=== PATIENT | female | born 1990 | race American Indian/Alaskan Native ===

== ENCOUNTER 2019-07-08 15:52 | Inpatient (IN) | payer MEDICAID ==
[2019-07-08] MEDS ORDERED: LACTATED RINGERS 1,000 ML ONE (17:17)
[2019-07-08] MEDS ORDERED: BRETHINE IVP PRN (17:23)
[2019-07-08] MEDS ORDERED: XYLOCAINE 2% INFILTRATI ONE (17:23)
[2019-07-08] MEDS ORDERED: SUBLIMAZE IV PRN (17:23)
[2019-07-08] MEDS ORDERED: MINERAL OIL PO PRN (17:23)
[2019-07-08] MEDS ORDERED: NARCAN 0.4 MG/1 ML IV PRN (17:23)
[2019-07-08] MEDS ORDERED: ZOFRAN IV PRN ×2 (17:23→20:31)
--- NOTE | 2019-07-08 17:39 | History and Physical Report ---
History of Present Illness Date of examination: 07/08/19 Date of admission: 07/08/19 16:59 Chief complaint: Intense labor pains History of present illness: 29yo AA Fe , S[place] 07/13/19, 39 weeks 3 weeks, presents in spontaneous labor. Pt transferd her care to [facility] at 37 weeks. Limited records available, reviewed, and scanned into chart. Past History Past Medical History: no pertinent history Past Surgical History: no surgical history EPIDEMIOLOGY INTERN History: denies: abnormal PAP smear, chlamydia, gonorrhea, hepatitis B, hepatitis C, herpes, HIV, syphilis, trichomonas Family/Genetic History: diabetes, hypertension Social history: no significant social history, , lives with family, full code. denies: smoking, IV drug use - Obstetrical History Expected Date of Delivery: 07/13/19 Actual Gestation: 39 Week(s) 2 Day(s) : 4 Para: 2 Hx # Term Pregnancies: 2 Number of Pregnancies: 0 Spontaneous Abortions: 1 Induced : 0 Number of Living Children: 2 Medications and Allergies Allergies Allergy/AdvReac Type Severity Reaction Status Date / Time diphenhydramine HCl Allergy Severe Swelling Verified 07/08/19 16:01 [From [facility]] Home Medications Medication Instructions Recorded Confirmed Last Taken Type Azithromycin [Zithromax Z-NELY] 250 mg PO DAILY #6 tablet 11/04/14 Unknown Rx HYDROcodone/APAP 5-325 [[place] 1 each PO Q6HR PRN #12 tablet 11/04/14 Unknown Rx 5/325] Promethazine Dm (Nf) [Phenergan Dm 5 ml PO Q6H PRN #120 ml 11/04/14 Unknown Rx 6.25/15 mg 5 ml] Acetaminophen [Acetaminophen TAB] 500 mg PO Q6HR PRN #12 tablet 11/04/18 Unknown Rx Ondansetron [Zofran Odt] 4 mg PO Q8HR PRN #12 tab.rapdis 11/04/18 Unknown Rx Penicillin V Potassium 500 mg PO Q8H 10 Days #30 tablet 11/04/18 Unknown Rx Review of Systems Eyes: normal appearance Cardiovascular: no chest pain, no shortness of breath Respiratory: no shortness of breath Breasts: normal Gastrointestinal: no nausea, no vomiting, no diarrhea, no constipation Genitourinary: normal appearance, contractions, no vaginal bleeding, no leakage of fluid, no pelvic pain, no genital sores Integumentary: no rash, no sores, no lesions - Vital Signs Vital signs: Vital Signs Pulse BP 118 H 121/59 07/08/19 15:55 07/08/19 15:55 Temp Pulse Resp BP Pulse Ox 98.4 F 118 H 20 121/59 07/08/19 16:02 07/08/19 16:02 07/08/19 16:02 07/08/19 16:02 - Physical Exam Breasts: Positive: normal Cardiovascular: Regular rate, Normal S1, Normal S2, No murmurs Lungs: Positive: Clear to auscultation, Normal air movement Abdomen: Positive: normal appearance, soft, normal bowel sounds. Negative: distention Vulva: both: normal Vagina: Positive: normal moisture Uterus: Positive: enlarged (gravid) Anus/Rectum: Positive: normal perianal skin Extremities: Positive: normal Deep Tendon Reflex Grade: Normal +2 - Obstetrical FHR: auscultation normal, category 1, category 2, category 3 Uterine Contraction Monitor Mode: External Cervical Dilatation: 6 (Per admitting RN) Cervical Effacement Percentage: 90 station: -2 Uterine Contraction Pattern: Regular Uterine Tone Measurement Phase: Resting Uterine Contraction Intensity: Moderate Results All other labs normal. Assessment and Plan A: Term IUP Active labor Category 1 tracing GBS Negative P: Admit to L&D Routine labor orders Anticipate
[2019-07-08] MEDS ORDERED: PITOCin/NS 20 UNIT/1000ML DRIP 20 UNITS/1,000 ML BAG IV SCH (18:00)
[2019-07-08] MEDS ORDERED: LACTATED RINGERS 1,000 ML IV SCH (18:00)
[2019-07-08] MEDS ORDERED: PITOCin/NS 30 UNIT/500ML 30 UNITS/500 ML BAG IV SCH (18:00)
[2019-07-08] MEDS ORDERED: BRETHINE SUB-Q PRN (18:00)
[2019-07-08 18:28] LABS: Hematocrit 33.1 % (30.3-42.9); Hemoglobin 10.7 gm/dl (10.1-14.3); Mean Corpuscular HGB Conc 32 % (30-34); Mean Corpuscular Volume 76 fl (79-97); Platelet Count 314 K/mm3 (140-440); Red Blood Count 4.39 M/mm3 (3.65-5.03); Red Cell Distribution Width 16.8 % (13.2-15.2)
[2019-07-08] MEDS ORDERED: NARCAN 2 MG/2 ML IV PRN (19:17)
--- NOTE | 2019-07-08 19:17 | Anesthesia Consultation ---
Anesthesia Consult and Med Hx Date of service: 07/08/19 - Airway Anesthetic Teeth Evaluation: Good ROM Head & Neck: Adequate Mental/Hyoid Distance: Adequate Mallampati Class: Class II Intubation Access Assessment: Probably Good - Pulmonary Exam CTA: Yes - Cardiac Exam Cardiac Exam: RRR - Pre-Operative Health Status ASA Pre-Surgery Classification: ASA3 Proposed Anesthetic Plan: Epidural - Pulmonary Hx Asthma: No COPD: No Hx Pneumonia: No - Cardiovascular System Hx Hypertension: No - Central Nervous System Hx Seizures: No Hx Psychiatric Problems: No - Endocrine Hx Renal Disease: No Hx End Stage Renal Disease: No Hx Hypothyroidism: No Hx Hyperthyroidism: No - Hematic Hx Anemia: Yes Hx Sickle Cell Disease: No - Other Systems Hx Alcohol Use: No
[2019-07-08] MEDS ORDERED: fentaNYL-BUPIV 2 MCG/ML-0.125% 200 MCG/100 ML BAG EPIDURAL SCH (20:00)
[2019-07-08] MEDS ORDERED: BENADRYL PO PRN (20:31)
[2019-07-08] MEDS ORDERED: NORCO 5/325 PO PRN (20:31)
[2019-07-08] MEDS ORDERED: PHENERGAN PO PRN (20:31)
[2019-07-08] MEDS ORDERED: TYLENOL PO PRN (20:31)
[2019-07-08] MEDS ORDERED: TUCKS PAD TP PRN (20:31)
[2019-07-08] MEDS ORDERED: LANSINOH TP PRN (20:31)
[2019-07-08] MEDS ORDERED: MILK OF MAGNESIA PO PRN (20:31)
[2019-07-08] MEDS ORDERED: DULCOLAX PR PRN (20:31)
--- NOTE | 2019-07-08 20:41 | Procedure Note ---
OB Delivery Note - Delivery Date of Delivery: 07/08/19 (19:45) Surgeon: KIEL CHAMBERS (SHANNON) Estimated blood loss: 100cc - Vaginal Delivery presentation: vertex Delivery position: OA Intrapartum events: none Delivery induction: none Delivery monitor: external FHT, external uterine Route of delivery: (19:45) Delivery placenta: spontaneous (19:52) Delivery cord: nuchal cord (x1 loose) Episiotomy: none Delivery laceration: none Anesthesia: epidural Delivery comments: Nurse delivery of viable male . Upon entering room , vigorous infant [id number] on mothers abdomen. Cord clamped and then cut by FOB with my Guidance. Cord blood collected per protocol. Spontaneous zambrano delivery of intact placenta with 3VC at 19: 52. FF@U-2. small lochia. No tears or lacerations. EBL 100cc. and mother left in stable condition in L&D. - Infant A at 1 minute: 8 at 5 minutes: 9 Infant Gender: Male (2851 grams, 6lbs 5oz)
[2019-07-08] MEDS ORDERED: SODIUM CHLORIDE FLUSH SYRINGE 10 ML IV NR (21:00)
[2019-07-08] MEDS: IBUPROFEN PO SCH (22:09)
[2019-07-09] MEDS: IBUPROFEN PO SCH ×3 (05:49→23:58)
[2019-07-09 09:04] LABS: Hematocrit 31.3 % (30.3-42.9); Hemoglobin 9.9 gm/dl (10.1-14.3)
--- NOTE | 2019-07-09 11:00 | Progress Note ---
Assessment and Plan - Patient Problems (1) Vaginal delivery Current Visit: No Status: Acute Plan to address problem: Continue routine PP orders Anticipate d/c home tomorrow (2) Anemia Current Visit: Yes Status: Acute Qualifiers: Anemia type: other cause Other causes of anemia: acute posthemorrhagic Qualified Code(s): D62 - Acute posthemorrhagic anemia Plan to address problem: Asymptomatic Continue daily oral iron supplementation after d/c Increase iron rich foods into diet Subjective - Subjective Date of service: 07/09/19 Principal diagnosis: Interval history: See admission H & P and OB delivery summary Patient reports: appetite normal, voiding normally, pain well controlled, flatus, ambulating normally, no bowel movement [place]: doing well () Objective - Vital Signs Latest vital signs: Vital Signs Temp Pulse Resp BP BP Pulse Ox 07/09/19 07:55 97.6 F 60 18 107/47 07/09/19 05:49 20 07/09/19 00:30 98.4 F 75 18 101/64 07/08/19 23:41 20 07/08/19 22:09 18 07/08/19 22:00 68 18 128/60 98 07/08/19 21:24 78 139/71 07/08/19 21:00 78 16 139/71 07/08/19 20:45 80 16 165/62 07/08/19 20:43 80 165/62 07/08/19 20:30 92 H 16 141/63 07/08/19 20:27 92 H 141/63 07/08/19 20:15 91 H 16 158/63 07/08/19 20:12 110 H 158/63 07/08/19 20:00 97.8 F 97 H 18 141/66 141/66 07/08/19 19:50 108 H 160/80 07/08/19 19:41 106 H 189/84 07/08/19 19:35 121 H 105/71 07/08/19 19:31 75 78 L 07/08/19 19:29 91 H 97/70 07/08/19 19:28 87 132/59 07/08/19 19:26 100 H 158/70 99 07/08/19 19:23 90 145/68 07/08/19 19:21 96 H 145/74 07/08/19 19:20 90 98 07/08/19 19:19 86 145/66 07/08/19 19:18 99 H 132/73 07/08/19 19:15 92 H 151/76 97 07/08/19 19:14 107 H 163/106 07/08/19 19:11 98 H 156/70 07/08/19 19:10 97 H 96 07/08/19 18:56 117 H 98 07/08/19 18:31 99.1 F 86 16 123/56 123/56 07/08/19 17:33 89 94/58 07/08/19 16:02 98.4 F 118 H 20 121/59 07/08/19 15:55 118 H 121/59 Intake and Output 07/08/19 07/09/19 07/09/19 23:59 07:59 15:59 Intake Total 1700 540 Output Total 150 Balance 1550 540 Intake: IV 1700 Lactated Ringers 1,000 ml 700 @ 125 mls/hr IV DIRECT PAULO Rx#:[id number] PITOCin/NS 20 UNIT/1000ML 500 DRIP 20 units In 1,000 ml @ 125 mls/hr IV DIRECT PAULO Rx#:[id number] PITOCin/NS 30 UNIT/500ML 500 30 units In 500 ml @ 4 mls/hr IV TITR PAULO Rx#: [id number] fentaNYL-BUPIV 2 MCG/ML-0 0 .125% 200 mcg In 100 ml @ 12 mls/hr EPIDURAL TITR PAULO Rx#:[id number] Oral 240 Intake, Free Water 300 Output: Urine 150 Void 150 Other: Total, Intake Amount 240 Total, Output Amount 150 # Voids Void 1 Weight 122.47 kg Estimated Blood Loss 100 - Exam Breasts: Present: normal Cardiovascular: Present: Regular rate Lungs: Present: Normal air movement Abdomen: Present: soft, normal bowel sounds Uterus: Present: firm, fundal height below umbilicus (U-2) Extremities: Present: normal Deep Tendon Reflex Grade: Normal +2 - Labs Labs: Abnormal lab results 07/08/19 07/09/19 Range/Units 17:50 08:18 WBC 11.7 H (4.5-11.0) K/mm3 Hgb 9.9 L (10.1-14.3) gm/dl MCV 76 L (79-97) fl MCH 24 L (28-32) pg RDW 16.8 H (13.2-15.2) %
--- NOTE | 2019-07-09 11:03 | Discharge Summary ---
Providers - Providers Date of Admission: 07/08/19 16:59 Date of discharge: 07/10/19 (1200) Attending physician: WILLIAMS CARBAJAL Primary care physician: WILLIAMS CARBAJAL Hospitalization Reason for admission: active labor Delivery: Episiotomy: none Laceration: none Other procedures: none complications: none Discharge diagnosis: IUP at term delivered [place] baby: male Hospital course: See admission H & P, OB delivery summary and PP progress notes Condition at discharge: Good Disposition: DC-01 TO HOME OR SELFCARE - Discharge Diagnoses (1) Vaginal delivery Status: Acute (2) Anemia Status: Acute Qualifiers: Anemia type: other cause Other causes of anemia: acute posthemorrhagic Qualified Code(s): D62 - Acute posthemorrhagic anemia Plan - Provider Discharge Summary Activity: routine, no sex for 6 weeks, no heavy lifting 4 weeks, no strenuous exercise Diet: other (Increase iron rich foods into diet) Instructions: routine Additional instructions: [] Smoking cessation referral if applicable(refer to patient education folder for contact #) [] Refer to [facility]'s [facility] Booklet Call your doctor immediately for: * Fever > 100.5 * Heavy vaginal bleeding ( >1 pad per hour) * Severe persistent headache * Shortness of breath * Reddened, hot, painful area to leg or breast * Drainage or odor from incision. - Follow up plan Follow up: WILLIAMS CARBAJAL MD [Primary Care Provider] - 6 Weeks
[2019-07-10] MEDS: IBUPROFEN PO SCH ×2 (05:43→10:00)
[2019-07-10 17:27] VITALS: BP 122/70
== END 2019-07-10 16:45 | disposition home or self-care (01) | DRG 775 ==
LOC: TRG 15:52 → LD 16:59 → OB 21:47
PROVIDERS: ADMIT Obstetrics & Gynecology; ATTEND Obstetrics & Gynecology
PROC: 10E0XZZ Delivery of Products of Conception, External Approach (ICD-10-PCS; principal; 2019-07-08)
PROC: 3E0R3BZ Introduction of Anesthetic Agent into Spinal Canal, Percutaneous Approach (ICD-10-PCS; 2019-07-08)
PROC: 00HU33Z Insertion of Infusion Device into Spinal Canal, Percutaneous Approach (ICD-10-PCS; 2019-07-08)
DX: O69.81X0 Labor and delivery complicated by cord around neck, without compression, not applicable or unspecified (principal); O99.02 Anemia complicating childbirth; D62 Acute posthemorrhagic anemia; Z37.0 Single live birth; Z3A.39 39 weeks gestation of pregnancy; Z83.3 Family history of diabetes mellitus; Z82.49 Family history of ischemic heart disease and other diseases of the circulatory system; Z79.899 Other long term (current) drug therapy
CPT/HCPCS: 36415; 85014; 85018; 85027; 86592; 86850; 86900; 86901; G0378; J2590; J3010; J7120